=== PATIENT | male | born 1965 | race Caucasian/White ===

== ENCOUNTER → 2020-01-15 | Outpatient (CLI) | payer BC ==
[~2020-01-15] MED LIST: COUM10TA; COUM1TAB17; PERC7.5T8; SKEL800T5
[2020-01-15 17:59] LABS: ALBUMIN 3.6 GM/DL (3.2-5.2); BILIRUBIN,TOTAL 0.3 MG/DL (0.2-1.0); CALCIUM LEVEL 9.4 MG/DL (8.5-10.1); CREATININE FOR GFR 1.62 MG/DL (0.70-1.30); GLOMERULAR FILTRATION RATE 47.3 (>56); POTASSIUM SERUM 4.2 MEQ/L (3.5-5.1); TOTAL PROTEIN 7.2 GM/DL (6.4-8.2)
[2020-01-15 18:51] LABS: BASO % 0.6 % (0.0-1.0); EOS # 0.2 10^3/uL (0.0-0.5); EOS % 2.1 % (0.0-3.0); HEMATOCRIT 37.2 % (42.0-52.0); HEMOGLOBIN 11.9 g/dl (13.5-17.5); LYMPH # 1.7 10^3/uL (1.5-5.0); LYMPH % 23.4 % (24.0-44.0); MEAN CORPUSCULAR HEMOGLOBIN 30.6 pg (27.0-33.0); MEAN CORPUSCULAR VOLUME 95.6 fl (80.0-96.0); MONO # 0.8 10^3/uL (0.0-0.8); MONO % 10.7 % (0.0-5.0); NEUTROPHILS # 4.5 10^3/uL (1.5-8.5); NEUTROPHILS % 62.6 % (36.0-66.0); PLATELET COUNT, AUTOMATED 269 10^3/uL (150-450); RED BLOOD COUNT 3.89 10^6/uL (4.30-6.10); WHITE BLOOD COUNT 7.2 10^3/uL (4.0-10.0)
[2020-01-15 18:52] LABS: HEMOGLOBIN A1c 7.8 %
== END ==
LOC: M WUC 14:47
PROVIDERS: ATTEND Physician Assistant Medical
DX: E78.5 Hyperlipidemia, unspecified (principal); E11.9 Type 2 diabetes mellitus without complications; Z12.5 Encounter for screening for malignant neoplasm of prostate; E66.01 Morbid (severe) obesity due to excess calories
CPT/HCPCS: 36415; 80053; 80061; 83036; 85025; G0103

== ENCOUNTER → 2020-01-15 | Outpatient (CLI) | payer BC ==
[2020-01-15 18:39] LABS: INR 2.17
== END ==
LOC: M WUC 14:50
PROVIDERS: ATTEND Specialist
DX: I82.441 Acute embolism and thrombosis of right tibial vein (principal); Z79.01 Long term (current) use of anticoagulants

== ENCOUNTER → 2020-06-21 | Outpatient (CLI) | payer BC ==
[2020-06-21 16:35] LABS: INR 1.89; PROTHROMBIN TIME 22.1 SECONDS (12.5-14.3)
== END ==
LOC: M WUC 11:30
PROVIDERS: ATTEND Specialist
DX: I82.441 Acute embolism and thrombosis of right tibial vein (principal); Z79.01 Long term (current) use of anticoagulants

== ENCOUNTER → 2020-08-08 | Outpatient (CLI) | payer BC ==
[2020-08-08 14:12] LABS: HEMOGLOBIN A1c 9.1 %
== END ==
LOC: M WUC 09:03
PROVIDERS: ATTEND Physician Assistant Medical
DX: E11.9 Type 2 diabetes mellitus without complications (principal)

== ENCOUNTER → 2020-08-08 | Outpatient (CLI) | payer BC ==
[2020-08-08 13:25] LABS: INR 1.98; PROTHROMBIN TIME 22.9 SECONDS (12.5-14.3)
== END ==
LOC: M WUC 09:07
DX: I82.441 Acute embolism and thrombosis of right tibial vein (principal); Z79.01 Long term (current) use of anticoagulants

== ENCOUNTER → 2020-12-05 | Outpatient (CLI) | payer BC ==
[2020-12-05 16:26] LABS: INR 1.94; PROTHROMBIN TIME 22.6 SECONDS (12.5-14.3)
== END ==
LOC: M WUC 14:30
PROVIDERS: ATTEND Specialist
DX: I82.441 Acute embolism and thrombosis of right tibial vein (principal); Z79.01 Long term (current) use of anticoagulants

== ENCOUNTER → 2020-12-24 | Outpatient (CLI) | payer BC ==
[2020-12-24 17:11] LABS: INR 2.07; PROTHROMBIN TIME 23.8 SECONDS (12.5-14.3)
== END ==
LOC: M WUC 11:29
PROVIDERS: ATTEND Specialist
DX: I82.441 Acute embolism and thrombosis of right tibial vein (principal); Z79.01 Long term (current) use of anticoagulants

== ENCOUNTER → 2020-12-24 | Outpatient (CLI) | payer BC ==
[2020-12-24 16:50] LABS: BASO # 0.1 10^3/uL (0.0-0.2); BASO % 0.9 % (0.0-1.0); EOS # 0.1 10^3/uL (0.0-0.5); EOS % 2.1 % (0.0-3.0); HEMATOCRIT 39.2 % (42.0-52.0); HEMOGLOBIN 12.4 g/dl (13.5-17.5); LYMPH # 1.7 10^3/uL (1.5-5.0); LYMPH % 25.1 % (24.0-44.0); MEAN CORPUSCULAR HEMOGLOBIN 30.1 pg (27.0-33.0); MEAN CORPUSCULAR HGB CONC 31.6 g/dl (32.0-36.5); MEAN CORPUSCULAR VOLUME 95.1 fl (80.0-96.0); MONO # 0.7 10^3/uL (0.0-0.8); MONO % 10.7 % (2.0-8.0); NEUTROPHILS # 4.2 10^3/uL (1.5-8.5); NEUTROPHILS % 60.8 % (36.0-66.0); PLATELET COUNT, AUTOMATED 255 10^3/uL (150-450); RED BLOOD COUNT 4.12 10^6/uL (4.30-6.10); WHITE BLOOD COUNT 6.8 10^3/uL (4.0-10.0)
[2020-12-24 17:34] LABS: HEMOGLOBIN A1c 8.9 %
[2020-12-24 17:37] LABS: ALBUMIN 3.8 GM/DL (3.2-5.2); BILIRUBIN,TOTAL 0.3 MG/DL (0.2-1.0); CHOLESTEROL RISK RATIO 4.276 (<5); CREATININE FOR GFR 1.42 MG/DL (0.70-1.30); GLOMERULAR FILTRATION RATE 54.9 (>56); POTASSIUM SERUM 4.5 MEQ/L (3.5-5.1); TOTAL PROTEIN 7.5 GM/DL (6.4-8.2)
[2020-12-25 11:03] LABS: PERCENT SATURATION 18.4 % (19.7-50.0)
== END ==
LOC: M WUC 11:26
PROVIDERS: ATTEND Physician Assistant Medical
DX: D64.9 Anemia, unspecified (principal); E11.9 Type 2 diabetes mellitus without complications; E66.01 Morbid (severe) obesity due to excess calories; E78.5 Hyperlipidemia, unspecified; Z12.5 Encounter for screening for malignant neoplasm of prostate
CPT/HCPCS: 80053; 80061; 83036; 83550; 85025; G0103

== ENCOUNTER → 2021-03-05 | Outpatient (CLI) | payer BC ==
[2021-03-05 17:15] LABS: INR 2.92; PROTHROMBIN TIME 30.8 SECONDS (12.7-14.5)
== END ==
LOC: M WUC 14:14
PROVIDERS: ATTEND Specialist
DX: I82.441 Acute embolism and thrombosis of right tibial vein (principal); Z79.01 Long term (current) use of anticoagulants

== ENCOUNTER → 2021-05-16 | Outpatient (CLI) | payer BC ==
[2021-05-16 16:20] LABS: INR 2.05; PROTHROMBIN TIME 23.6 SECONDS (12.7-14.5)
== END ==
LOC: M WUC 12:03
PROVIDERS: ATTEND Specialist
DX: I82.441 Acute embolism and thrombosis of right tibial vein (principal); Z79.01 Long term (current) use of anticoagulants

== ENCOUNTER → 2021-05-16 | Outpatient (CLI) | payer BC ==
[2021-05-16 16:10] LABS: BASO # 0.1 10^3/uL (0.0-0.2); BASO % 0.7 % (0.0-1.0); EOS # 0.2 10^3/uL (0.0-0.5); EOS % 2.8 % (0.0-3.0); HEMATOCRIT 35.4 % (42.0-52.0); HEMOGLOBIN 11.2 g/dl (13.5-17.5); LYMPH # 1.8 10^3/uL (1.5-5.0); LYMPH % 25.3 % (24.0-44.0); MEAN CORPUSCULAR HEMOGLOBIN 28.6 pg (27.0-33.0); MEAN CORPUSCULAR HGB CONC 31.6 g/dl (32.0-36.5); MEAN CORPUSCULAR VOLUME 90.5 fl (80.0-96.0); MONO # 0.6 10^3/uL (0.0-0.8); MONO % 8.8 % (2.0-8.0); NEUTROPHILS # 4.4 10^3/uL (1.5-8.5); PLATELET COUNT, AUTOMATED 279 10^3/uL (150-450); RED BLOOD COUNT 3.91 10^6/uL (4.30-6.10)
[2021-05-16 16:40] LABS: ALBUMIN 3.4 GM/DL (3.2-5.2); BILIRUBIN,TOTAL 0.5 MG/DL (0.2-1.0); CALCIUM LEVEL 8.6 MG/DL (8.5-10.1); CHOLESTEROL RISK RATIO 4.155 (<5); CREATININE FOR GFR 1.54 MG/DL (0.70-1.30); POTASSIUM SERUM 4.3 MEQ/L (3.5-5.1)
[2021-05-16 17:18] LABS: HEMOGLOBIN A1c 8.4 %
== END ==
LOC: M WUC 11:53
PROVIDERS: ATTEND Physician Assistant Medical
DX: E11.9 Type 2 diabetes mellitus without complications (principal); E78.5 Hyperlipidemia, unspecified; I10 Essential (primary) hypertension

== ENCOUNTER → 2021-08-06 | Outpatient (CLI) | payer BC ==
[2021-08-06 15:52] LABS: INR 3.28; PROTHROMBIN TIME 33.7 SECONDS (12.7-14.5)
== END ==
LOC: M WUC 11:58
PROVIDERS: ATTEND Specialist
DX: I82.441 Acute embolism and thrombosis of right tibial vein (principal); Z79.01 Long term (current) use of anticoagulants

== ENCOUNTER → 2021-09-03 | Outpatient (REF) | payer BC ==
[2021-09-03 17:59] LABS: INR 2.93; PROTHROMBIN TIME 30.9 SECONDS (12.7-14.5)
== END ==
LOC: M LABWUC 15:45
PROVIDERS: ATTEND Specialist
DX: I82.441 Acute embolism and thrombosis of right tibial vein (principal); Z79.01 Long term (current) use of anticoagulants

== ENCOUNTER → 2021-09-17 | Outpatient (CLI) | payer BC ==
[2021-09-17 13:15] LABS: INR 2.21; PROTHROMBIN TIME 24.9 SECONDS (12.7-14.5)
== END ==
LOC: M WUC 10:30
PROVIDERS: ATTEND Specialist
DX: I82.441 Acute embolism and thrombosis of right tibial vein (principal)

== ENCOUNTER → 2021-09-17 | Outpatient (CLI) | payer BC ==
[2021-09-17 13:06] LABS: BASO # 0.1 10^3/uL (0.0-0.2); BASO % 0.8 % (0.0-1.0); EOS # 0.1 10^3/uL (0.0-0.5); EOS % 1.9 % (0.0-3.0); HEMATOCRIT 35.7 % (42.0-52.0); LYMPH # 1.4 10^3/uL (1.5-5.0); LYMPH % 18.7 % (24.0-44.0); MEAN CORPUSCULAR HEMOGLOBIN 27.2 pg (27.0-33.0); MEAN CORPUSCULAR HGB CONC 30.8 g/dl (32.0-36.5); MEAN CORPUSCULAR VOLUME 88.4 fl (80.0-96.0); MONO # 0.7 10^3/uL (0.0-0.8); MONO % 8.8 % (2.0-8.0); NEUTROPHILS # 5.2 10^3/uL (1.5-8.5); NEUTROPHILS % 69.3 % (36.0-66.0); PLATELET COUNT, AUTOMATED 310 10^3/uL (150-450); RED BLOOD COUNT 4.04 10^6/uL (4.30-6.10); WHITE BLOOD COUNT 7.5 10^3/uL (4.0-10.0)
[2021-09-17 13:33] LABS: ALBUMIN 3.5 GM/DL (3.2-5.2); BILIRUBIN,TOTAL 0.2 MG/DL (0.2-1.0); CALCIUM LEVEL 9.1 MG/DL (8.5-10.1); CHOLESTEROL RISK RATIO 3.448 (<5); CREATININE FOR GFR 1.43 MG/DL (0.70-1.30); GLOMERULAR FILTRATION RATE 54.3 (>56); POTASSIUM SERUM 4.3 MEQ/L (3.5-5.1); TOTAL PROTEIN 7.7 GM/DL (6.4-8.2)
== END ==
LOC: M WUC 10:23
PROVIDERS: ATTEND Physician Assistant Medical
DX: E78.5 Hyperlipidemia, unspecified (principal); E11.9 Type 2 diabetes mellitus without complications; I10 Essential (primary) hypertension

== ENCOUNTER → 2021-11-03 | Outpatient (CLI) | payer BC ==
[2021-11-03 15:15] LABS: INR 3.23; PROTHROMBIN TIME 33.3 SECONDS (12.7-14.5)
== END ==
LOC: M WUC 11:37
PROVIDERS: ATTEND Specialist
DX: I82.441 Acute embolism and thrombosis of right tibial vein (principal)

== ENCOUNTER → 2021-12-29 | Outpatient (CLI) | payer BC ==
[2021-12-29 12:53] LABS: INR 2.87; PROTHROMBIN TIME 30.4 SECONDS (12.7-14.5)
== END ==
LOC: M WUC 09:03
PROVIDERS: ATTEND Specialist
DX: I82.441 Acute embolism and thrombosis of right tibial vein (principal); Z79.01 Long term (current) use of anticoagulants

== ENCOUNTER → 2021-12-29 | Outpatient (CLI) | payer BC ==
[2021-12-29 13:51] LABS: ALBUMIN 3.4 GM/DL (3.2-5.2); BILIRUBIN,TOTAL 0.3 MG/DL (0.2-1.0); CALCIUM LEVEL 9.4 MG/DL (8.5-10.1); CHOLESTEROL RISK RATIO 3.931 (<5); CREATININE FOR GFR 1.69 MG/DL (0.70-1.30); GLOMERULAR FILTRATION RATE 44.7 (>56); POTASSIUM SERUM 4.8 MEQ/L (3.5-5.1); TOTAL PROTEIN 6.7 GM/DL (6.4-8.2)
[2021-12-29 14:59] LABS: HEMOGLOBIN A1c 7.4 %
== END ==
LOC: M WUC 09:02
PROVIDERS: ATTEND Physician Assistant Medical
DX: E78.5 Hyperlipidemia, unspecified (principal); E11.9 Type 2 diabetes mellitus without complications; I10 Essential (primary) hypertension

== ENCOUNTER → 2022-03-24 | Outpatient (REF) | payer BC ==
[2022-03-24 22:01] LABS: INR 2.92; PROTHROMBIN TIME 30.8 SECONDS (12.7-14.5)
== END ==
LOC: M LAB REF 20:47
PROVIDERS: ATTEND Specialist
DX: I82.441 Acute embolism and thrombosis of right tibial vein (principal); Z79.01 Long term (current) use of anticoagulants

== ENCOUNTER → 2022-05-08 | Outpatient (CLI) | payer BC ==
[2022-05-08 17:33] LABS: INR 3.51; PROTHROMBIN TIME 35.7 SECONDS (12.5-14.5)
== END ==
LOC: M WUC 13:15
PROVIDERS: ATTEND Specialist
DX: I82.441 Acute embolism and thrombosis of right tibial vein (principal); Z79.01 Long term (current) use of anticoagulants

== ENCOUNTER → 2022-05-08 | Outpatient (CLI) | payer BC ==
[2022-05-08 17:18] LABS: BASO # 0.1 10^3/uL (0.0-0.2); BASO % 0.6 % (0.0-1.0); EOS # 0.2 10^3/uL (0.0-0.5); EOS % 1.9 % (0.0-3.0); HEMATOCRIT 38.6 % (42.0-52.0); HEMOGLOBIN 11.7 g/dl (13.5-17.5); LYMPH # 1.8 10^3/uL (1.5-5.0); LYMPH % 21.9 % (24.0-44.0); MEAN CORPUSCULAR HEMOGLOBIN 27.3 pg (27.0-33.0); MEAN CORPUSCULAR HGB CONC 30.3 g/dl (32.0-36.5); MONO # 0.8 10^3/uL (0.0-0.8); MONO % 9.4 % (2.0-8.0); NEUTROPHILS # 5.4 10^3/uL (1.5-8.5); PLATELET COUNT, AUTOMATED 312 10^3/uL (150-450); RED BLOOD COUNT 4.29 10^6/uL (4.30-6.10); WHITE BLOOD COUNT 8.1 10^3/uL (4.0-10.0)
[2022-05-08 17:28] LABS: HEMOGLOBIN A1c 9.4 %
[2022-05-08 17:39] LABS: ALBUMIN 3.5 GM/DL (3.2-5.2); BILIRUBIN,TOTAL 0.2 MG/DL (0.2-1.0); CHOLESTEROL RISK RATIO 3.787 (<5); CREATININE FOR GFR 1.44 MG/DL (0.70-1.30); GLOMERULAR FILTRATION RATE 53.8 (>56); POTASSIUM SERUM 4.6 MEQ/L (3.5-5.1)
== END ==
LOC: M WUC 13:12
PROVIDERS: ATTEND Physician Assistant Medical
DX: E78.5 Hyperlipidemia, unspecified (principal); E11.9 Type 2 diabetes mellitus without complications; I10 Essential (primary) hypertension

== ENCOUNTER → 2022-07-02 | Outpatient (CLI) | payer BC ==
[2022-07-02 16:51] LABS: INR 2.84; PROTHROMBIN TIME 30.3 SECONDS (12.5-14.5)
== END ==
LOC: M WUC 13:19
PROVIDERS: ATTEND Specialist
DX: I82.441 Acute embolism and thrombosis of right tibial vein (principal); Z79.01 Long term (current) use of anticoagulants

== ENCOUNTER 2022-07-21 12:00 | Emergency (ER) | payer BC ==
[~2022-07-21] VITALS: Ht 182.9 cm; Wt 140.9 kg
[2022-07-21] MEDS ORDERED: METF-839 PO (12:25)
[2022-07-21] MEDS ORDERED: TRUL0.5I SC (12:25)
[2022-07-21] MEDS ORDERED: FENO145T7 PO (12:25)
[2022-07-21] MEDS ORDERED: FARX1TAB3 PO (12:25)
[2022-07-21] MEDS ORDERED: LISI10TA22 PO (12:25)
[2022-07-21] MEDS ORDERED: vit (12:25)
[2022-07-21] MEDS ORDERED: WARF-21 PO (12:25)
[2022-07-21] MEDS ORDERED: TAMS1CAP17 PO (12:25)
[2022-07-21 16:19] LABS: BASO # 0.1 10^3/uL (0.0-0.2); BASO % 0.6 % (0.0-1.0); EOS # 0.1 10^3/uL (0.0-0.5); EOS % 1.4 % (0.0-3.0); HEMATOCRIT 30.8 % (42.0-52.0); HEMOGLOBIN 9.4 g/dl (13.5-17.5); LYMPH % 21.9 % (24.0-44.0); MEAN CORPUSCULAR HEMOGLOBIN 27.3 pg (27.0-33.0); MEAN CORPUSCULAR HGB CONC 30.5 g/dl (32.0-36.5); MEAN CORPUSCULAR VOLUME 89.5 fl (80.0-96.0); MONO # 0.8 10^3/uL (0.0-0.8); MONO % 8.5 % (2.0-8.0); NEUTROPHILS # 6.2 10^3/uL (1.5-8.5); NEUTROPHILS % 66.8 % (36.0-66.0); PLATELET COUNT, AUTOMATED 322 10^3/uL (150-450); RED BLOOD COUNT 3.44 10^6/uL (4.30-6.10); WHITE BLOOD COUNT 9.3 10^3/uL (4.0-10.0)
[2022-07-21 16:31] LABS: INR 2.72; PROTHROMBIN TIME 29.3 SECONDS (12.5-14.5)
[2022-07-21 16:32] LABS: PARTIAL THROMBOPLASTIN TIME 33.2 SECONDS (24.8-34.2)
[2022-07-21 16:50] LABS: D-DIMER QUANT < 270 ng/ml (<500)
[2022-07-21 17:30] LABS: CK-MB VALUE MASS < 1.0 NG/ML (<3.6)
[2022-07-21 17:44] LABS: ALBUMIN 3.8 G/DL (3.2-5.2); ALKALINE PHOSPHATASE 48 U/L (46-116); ALT/SGPT 17 U/L (7.0-40); AST/SGOT 13 U/L (<34); BILIRUBIN,DIRECT < 0.1 MG/DL (<0.4); BILIRUBIN,TOTAL 0.3 MG/DL (0.3-1.2); BLOOD UREA NITROGEN 40 MG/DL (9-23); CALCIUM LEVEL 9.2 MG/DL (8.5-10.1); CARBON DIOXIDE LEVEL 24 MMOL/L (20-31); CHLORIDE LEVEL 106 MMOL/L (98-107); CPK CREATINE PHOSPHOKINASE 43 U/L (46-171); CREATININE FOR GFR 1.54 MG/DL (0.70-1.30); GLOMERULAR FILTRATION RATE 49.6 (>56); GLUCOSE, FASTING 124 MG/DL (60-100); MB/CK RELATIVE INDEX 2.32 (< OR =4); POTASSIUM SERUM 4.8 MMOL/L (3.5-5.1); SODIUM LEVEL 140 MMOL/L (136-145); TOTAL PROTEIN 7.1 G/DL (5.7-8.2)
[2022-07-21] MEDS ORDERED: NS 500 ML IV ONE (17:50)
[2022-07-21] MEDS ORDERED: NS 1,000 ML IV ONE (18:05)
[2022-07-21 19:02] LABS: IRON (FE) 47 UG/DL (65-175); PERCENT SATURATION 10.2 % (19.7-50.0); TOTAL IRON BINDING CAPACITY 461 UG/DL (250-425)
[2022-07-21] MEDS ORDERED: FERR325T3 PO (20:38)
[2022-07-21] MEDS ORDERED: DOCU100C17 PO ×2 (20:39)
[2022-07-21 21:12] VITALS: BP 124/73
== END 2022-07-21 21:14 | disposition home or self-care (01) ==
LOC: M ED 12:00
DX: R06.02 Shortness of breath (principal); N17.9 Acute kidney failure, unspecified; K62.5 Hemorrhage of anus and rectum; E86.0 Dehydration; I10 Essential (primary) hypertension; Z79.01 Long term (current) use of anticoagulants; Z79.84 Long term (current) use of oral hypoglycemic drugs; Z79.899 Other long term (current) drug therapy

== ENCOUNTER → 2022-07-27 | Outpatient (CLI) | payer BC ==
[~2022-07-27] MED LIST changes: +DOCU100C17 PO; +FARX1TAB3 PO; +FENO145T7 PO; +FERR325T3 PO; +LISI10TA22 PO; +METF-839 PO; +TAMS1CAP17 PO; +TRUL0.5I SC; +WARF-21 PO; +vit
[2022-07-27 10:20] LABS: BASO # 0.1 10^3/uL (0.0-0.2); BASO % 0.8 % (0.0-1.0); EOS # 0.2 10^3/uL (0.0-0.5); EOS % 2.7 % (0.0-3.0); HEMATOCRIT 31.6 % (42.0-52.0); HEMOGLOBIN 9.4 g/dl (13.5-17.5); LYMPH # 1.6 10^3/uL (1.5-5.0); LYMPH % 23.9 % (24.0-44.0); MEAN CORPUSCULAR HEMOGLOBIN 28.1 pg (27.0-33.0); MEAN CORPUSCULAR HGB CONC 29.7 g/dl (32.0-36.5); MEAN CORPUSCULAR VOLUME 94.3 fl (80.0-96.0); MONO # 0.6 10^3/uL (0.0-0.8); MONO % 9.1 % (2.0-8.0); NEUTROPHILS # 4.1 10^3/uL (1.5-8.5); NEUTROPHILS % 62.6 % (36.0-66.0); PLATELET COUNT, AUTOMATED 327 10^3/uL (150-450); RED BLOOD COUNT 3.35 10^6/uL (4.30-6.10); WHITE BLOOD COUNT 6.6 10^3/uL (4.0-10.0)
== END ==
LOC: M WUC 08:50
PROVIDERS: ATTEND Physician Assistant
DX: D64.9 Anemia, unspecified (principal)

== ENCOUNTER → 2022-07-27 | Outpatient (CLI) | payer BC ==
[2022-07-27 12:26] LABS: INR 2.63; PROTHROMBIN TIME 28.5 SECONDS (12.5-14.5)
== END ==
LOC: M WUC 08:38
PROVIDERS: ATTEND Specialist
DX: I82.441 Acute embolism and thrombosis of right tibial vein (principal); Z79.01 Long term (current) use of anticoagulants

== ENCOUNTER → 2022-08-25 | Outpatient (CLI) | payer BC | LOC: M LABSMTC 08:46 | PROVIDERS: ATTEND Anesthesiology | DX: Z01.812 Encounter for preprocedural laboratory examination (principal); Z11.52 Encounter for screening for COVID-19 ==

== ENCOUNTER 2022-08-28 08:09 | Day surgery (SDC) | payer BC ==
[~2022-08-28] VITALS: Ht 182.9 cm; Wt 137.0 kg
[~2022-08-28 08:09] MED LIST changes: +NS 1,000 ML IV ONE
[2022-08-28] MEDS ORDERED: propofoL 200 MG/20 ML VIAL As Ordered ONE (09:14)
[2022-08-28] MEDS ORDERED: LIDOCAINE 2% 100MG/5ML SDV (FOR ANES.) As Ordered ONE (09:14)
[2022-08-28 10:30] VITALS: BP 130/87
== END 2022-08-28 10:45 | disposition home or self-care (01) ==
LOC: M OPP 08:09
PROVIDERS: ATTEND Surgery
DX: K64.0 First degree hemorrhoids (principal); D50.9 Iron deficiency anemia, unspecified; K22.89 Other specified disease of esophagus; K29.70 Gastritis, unspecified, without bleeding; E11.9 Type 2 diabetes mellitus without complications; F32.9 Major depressive disorder, single episode, unspecified; N40.0 Benign prostatic hyperplasia without lower urinary tract symptoms; Z79.01 Long term (current) use of anticoagulants; Z79.84 Long term (current) use of oral hypoglycemic drugs; Z79.899 Other long term (current) drug therapy; Z86.718 Personal history of other venous thrombosis and embolism

== ENCOUNTER → 2022-09-14 | Outpatient (CLI) | payer BC ==
[~2022-09-14] MED LIST changes: -NS 1,000 ML IV ONE
[2022-09-14 14:09] LABS: HEMOGLOBIN A1c 9.4 % (4.0-6.0)
[2022-09-14 14:12] LABS: CREATININE, URINE 68.1 MG/DL
[2022-09-14 14:14] LABS: MALB URINE SIEMENS < 3.0 MG/L; MAU/CREAT RATIO 4.4 MCG/MG (0.0-30.0)
[2022-09-14 14:26] LABS: BASO % 0.6 % (0.0-1.0); EOS # 0.1 10^3/uL (0.0-0.5); EOS % 1.7 % (0.0-3.0); HEMATOCRIT 36.3 % (42.0-52.0); HEMOGLOBIN 11.3 g/dl (13.5-17.5); LYMPH # 1.2 10^3/uL (1.5-5.0); LYMPH % 18.4 % (24.0-44.0); MEAN CORPUSCULAR HEMOGLOBIN 28.6 pg (27.0-33.0); MEAN CORPUSCULAR HGB CONC 31.1 g/dl (32.0-36.5); MEAN CORPUSCULAR VOLUME 91.9 fl (80.0-96.0); MONO # 0.7 10^3/uL (0.0-0.8); MONO % 11.4 % (2.0-8.0); NEUTROPHILS # 4.2 10^3/uL (1.5-8.5); NEUTROPHILS % 67.6 % (36.0-66.0); PLATELET COUNT, AUTOMATED 305 10^3/uL (150-450); RED BLOOD COUNT 3.95 10^6/uL (4.30-6.10); WHITE BLOOD COUNT 6.3 10^3/uL (4.0-10.0)
== END ==
LOC: M WUC 10:13
PROVIDERS: ATTEND Physician Assistant Medical
DX: D50.9 Iron deficiency anemia, unspecified (principal); E11.9 Type 2 diabetes mellitus without complications; E78.5 Hyperlipidemia, unspecified

== ENCOUNTER → 2022-11-19 | Outpatient (REF) | payer BC ==
[2022-11-19 17:20] LABS: BASO % 0.7 % (0.0-1.0); EOS # 0.2 10^3/uL (0.0-0.5); EOS % 3.7 % (0.0-3.0); HEMATOCRIT 35.7 % (42.0-52.0); LYMPH # 1.6 10^3/uL (1.5-5.0); LYMPH % 28.3 % (24.0-44.0); MEAN CORPUSCULAR HEMOGLOBIN 27.5 pg (27.0-33.0); MEAN CORPUSCULAR HGB CONC 30.8 g/dl (32.0-36.5); MEAN CORPUSCULAR VOLUME 89.3 fl (80.0-96.0); MONO # 0.8 10^3/uL (0.0-0.8); MONO % 13.9 % (2.0-8.0); NEUTROPHILS % 52.7 % (36.0-66.0); PLATELET COUNT, AUTOMATED 377 10^3/uL (150-450); WHITE BLOOD COUNT 5.7 10^3/uL (4.0-10.0)
[2022-11-19 17:49] LABS: THYROID STIMULATING HORMONE 2.536 uIU/ML (0.55-4.78)
[2022-11-19 17:50] LABS: ALBUMIN 3.2 G/DL (3.2-5.2); BILIRUBIN,TOTAL 0.3 MG/DL (0.3-1.2); CALCIUM LEVEL 9.2 MG/DL (8.5-10.1); CHOLESTEROL RISK RATIO 3.82 (<5); CREATININE FOR GFR 1.46 MG/DL (0.70-1.30); GLOMERULAR FILTRATION RATE 52.8 (>56); LDL CHOLESTEROL 61.8 MG/DL (<100); POTASSIUM SERUM 4.9 MMOL/L (3.5-5.1); TOTAL PROTEIN 6.9 G/DL (5.7-8.2)
[2022-11-19 18:14] LABS: HEMOGLOBIN A1c 10.1 % (4.0-6.0)
== END ==
LOC: M LAB REF 16:31
PROVIDERS: ATTEND Physician Assistant Medical
DX: D50.9 Iron deficiency anemia, unspecified (principal); E11.69 Type 2 diabetes mellitus with other specified complication; R53.83 Other fatigue; E78.2 Mixed hyperlipidemia

== ENCOUNTER → 2022-12-23 | Outpatient (CLI) | payer BC | LOC: M RAD 07:18 | PROVIDERS: ATTEND Physician Assistant Medical | DX: E11.65 Type 2 diabetes mellitus with hyperglycemia (principal) ==

== ENCOUNTER → 2023-03-23 | Outpatient (REF) | payer BC ==
[2023-03-25 11:23] LABS: CREATININE, URINE 105.6 MG/DL; MAU/CREAT RATIO 3.7 MCG/MG (0.0-30.0)
== END ==
LOC: M LAB REF 09:49
PROVIDERS: ATTEND Internal Medicine Endocrinology, Diabetes & Metabolism
DX: E11.65 Type 2 diabetes mellitus with hyperglycemia (principal)

== ENCOUNTER → 2023-06-22 | Outpatient (REF) | payer BC ==
[2023-06-22 18:04] LABS: CREATININE, URINE 82.4 MG/DL
[2023-06-22 18:05] LABS: MALB URINE SIEMENS < 3.0 MG/L; MAU/CREAT RATIO 3.6 MCG/MG (0.0-30.0)
== END ==
LOC: M LAB REF 17:03
PROVIDERS: ATTEND Internal Medicine Endocrinology, Diabetes & Metabolism
DX: E11.65 Type 2 diabetes mellitus with hyperglycemia (principal)

== ENCOUNTER → 2023-09-06 | Outpatient (CLI) | payer BC ==
[2023-09-06 14:45] LABS: BASO # 0.1 10^3/uL (0.0-0.2); BASO % 0.7 % (0.0-1.0); EOS # 0.2 10^3/uL (0.0-0.5); EOS % 2.1 % (0.0-3.0); HEMATOCRIT 37.9 % (42.0-52.0); HEMOGLOBIN 11.8 g/dl (13.5-17.5); LYMPH # 1.4 10^3/uL (1.5-5.0); LYMPH % 17.2 % (24.0-44.0); MEAN CORPUSCULAR HEMOGLOBIN 28.6 pg (27.0-33.0); MEAN CORPUSCULAR HGB CONC 31.1 g/dl (32.0-36.5); MEAN CORPUSCULAR VOLUME 91.8 fl (80.0-96.0); MONO # 0.8 10^3/uL (0.0-0.8); MONO % 9.5 % (2.0-8.0); NEUTROPHILS # 5.9 10^3/uL (1.5-8.5); NEUTROPHILS % 70.1 % (36.0-66.0); PLATELET COUNT, AUTOMATED 359 10^3/uL (150-450); RED BLOOD COUNT 4.13 10^6/uL (4.30-6.10); WHITE BLOOD COUNT 8.4 10^3/uL (4.0-10.0)
[2023-09-06 14:47] LABS: ALBUMIN 3.4 G/DL (3.2-5.2); BILIRUBIN,TOTAL 0.2 MG/DL (0.3-1.2); CALCIUM LEVEL 8.6 MG/DL (8.5-10.1); CHOLESTEROL RISK RATIO 2.94 (<5); CREATININE FOR GFR 1.42 MG/DL (0.70-1.30); GLOMERULAR FILTRATION RATE 54.3 (>56); HDL CHOLESTEROL 48.6 MG/DL (>40); LDL CHOLESTEROL 78.6 MG/DL (<100); NON-HDL-C 94.4 MG/DL; POTASSIUM SERUM 4.5 MMOL/L (3.5-5.1); PSA SCREENING 0.5 NG/ML (< 4.00); TOTAL PROTEIN 6.9 G/DL (5.7-8.2)
[2023-09-06 14:52] LABS: TOTAL 25(OH) VITAMIN D 66.6 NG/ML (20.0-100.0)
[2023-09-06 15:18] LABS: HEMOGLOBIN A1c 6.9 % (4.0-6.0)
== END ==
LOC: M WUC 10:07
PROVIDERS: ATTEND Physician Assistant Medical
DX: E11.69 Type 2 diabetes mellitus with other specified complication (principal); E78.2 Mixed hyperlipidemia; I10 Essential (primary) hypertension; E55.9 Vitamin D deficiency, unspecified; Z12.5 Encounter for screening for malignant neoplasm of prostate
CPT/HCPCS: 36415; 80053; 80061; 82306; 83036; 85025; G0103

== ENCOUNTER → 2023-09-13 | Outpatient (CLI) | payer BC | LOC: M LAB 08:57 | PROVIDERS: ATTEND Physician Assistant Surgical | DX: E78.9 Disorder of lipoprotein metabolism, unspecified (principal); E11.69 Type 2 diabetes mellitus with other specified complication; E55.9 Vitamin D deficiency, unspecified ==

== ENCOUNTER → 2023-11-26 | Outpatient (CLI) | payer BC ==
[~2023-11-26] MED LIST changes: +GLIP5TAB17 PO; +LOSA50TA28 PO; +METF-723 PO; +TIRZ7.5P SC; +XARE20TA PO
[2023-11-26 17:01] LABS: HEMATOCRIT 26.9 % (42.0-52.0); HEMOGLOBIN 8.1 g/dl (13.5-17.5); MEAN CORPUSCULAR HEMOGLOBIN 25.5 pg (27.0-33.0); MEAN CORPUSCULAR HGB CONC 30.1 g/dl (32.0-36.5); MEAN CORPUSCULAR VOLUME 84.6 fl (80.0-96.0); PLATELET COUNT, AUTOMATED 449 10^3/uL (150-450); RED BLOOD COUNT 3.18 10^6/uL (4.30-6.10); WHITE BLOOD COUNT 10.1 10^3/uL (4.0-10.0)
[2023-11-26 17:30] LABS: CREATININE, URINE 121.8 MG/DL
[2023-11-26 17:31] LABS: MAU/CREAT RATIO 4.9 MCG/MG (0.0-30.0)
[2023-11-26 17:33] LABS: ALBUMIN 2.7 G/DL (3.2-5.2); BILIRUBIN,TOTAL 0.3 MG/DL (0.3-1.2); CALCIUM LEVEL 9.2 MG/DL (8.5-10.1); CHOLESTEROL RISK RATIO 3.08 (<5); CREATININE FOR GFR 1.57 MG/DL (0.70-1.30); GLOMERULAR FILTRATION RATE 48.4 (>56); HDL CHOLESTEROL 42.4 MG/DL (>40); LDL CHOLESTEROL 70.8 MG/DL (<100); NON-HDL-C 88.6 MG/DL; POTASSIUM SERUM 4.7 MMOL/L (3.5-5.1)
== END ==
LOC: M WUC 11:05
PROVIDERS: ATTEND Internal Medicine Endocrinology, Diabetes & Metabolism
DX: E11.65 Type 2 diabetes mellitus with hyperglycemia (principal)

== ENCOUNTER 2023-11-28 10:21 | Inpatient (IN) | payer BC ==
[2023-11-28] VITALS (9 sets, daily range): BP systolic 96–122; BP diastolic 51–68; TEMP 97.2–98.6; O2SAT 98–100
[~2023-11-28] VITALS: Ht 182.9 cm; Wt 124.8 kg
[~2023-11-28 10:21] MED LIST changes: -GLIP5TAB17 PO; -LOSA50TA28 PO; -METF-723 PO; -TIRZ7.5P SC; -XARE20TA PO
[2023-11-28] MEDS ORDERED: XARE20TA PO (10:48)
[2023-11-28] MEDS ORDERED: TIRZ7.5P SC (10:48)
[2023-11-28] MEDS ORDERED: LOSA50TA28 PO (10:48)
[2023-11-28] MEDS ORDERED: GLIP5TAB17 PO (10:48)
[2023-11-28 11:44] LABS: BASO # 0.1 10^3/uL (0.0-0.2); BASO % 0.6 % (0.0-1.0); EOS # 0.3 10^3/uL (0.0-0.5); EOS % 3.6 % (0.0-3.0); HEMATOCRIT 24.6 % (42.0-52.0); HEMOGLOBIN 7.7 g/dl (13.5-17.5); LYMPH % 10.8 % (24.0-44.0); MEAN CORPUSCULAR HEMOGLOBIN 25.6 pg (27.0-33.0); MEAN CORPUSCULAR HGB CONC 31.3 g/dl (32.0-36.5); MEAN CORPUSCULAR VOLUME 81.7 fl (80.0-96.0); MONO # 0.7 10^3/uL (0.0-0.8); MONO % 7.2 % (2.0-8.0); NEUTROPHILS # 7.3 10^3/uL (1.5-8.5); NEUTROPHILS % 77.4 % (36.0-66.0); PLATELET COUNT, AUTOMATED 426 10^3/uL (150-450); RED BLOOD COUNT 3.01 10^6/uL (4.30-6.10); WHITE BLOOD COUNT 9.4 10^3/uL (4.0-10.0)
[2023-11-28 12:01] LABS: D-DIMER QUANT 3.37 ug/mL (<0.5); INR 1.99; PROTHROMBIN TIME 21.9 SECONDS (12.5-14.5)
[2023-11-28 12:06] LABS: ALBUMIN 2.8 G/DL (3.2-5.2); BILIRUBIN,DIRECT 0.1 MG/DL (<0.4); BILIRUBIN,TOTAL 0.4 MG/DL (0.3-1.2); CALCIUM LEVEL 9.1 MG/DL (8.5-10.1); CREATININE FOR GFR 1.77 MG/DL (0.70-1.30); GLOMERULAR FILTRATION RATE 42.1 (>56); POTASSIUM SERUM 4.4 MMOL/L (3.5-5.1); TOTAL PROTEIN 7.2 G/DL (5.7-8.2)
[2023-11-28 12:10] LABS: THYROID STIMULATING HORMONE 1.793 uIU/ML (0.55-4.78)
[2023-11-28] MEDS ORDERED: ISOVUE-370 76% 100ML VIAL As Ordered ONE (12:22)
[2023-11-28] MEDS: NS 1,000 ML IV ONE (13:05)
[2023-11-28] MEDS ORDERED: FERR325T3 PO (14:46)
[2023-11-28] MEDS ORDERED: HOME MED LIST COMPLETE! XX SCH (14:50)
[2023-11-28] MEDS: PANTOPRAZOLE 40MG VIAL IV ONE (15:11)
[2023-11-28 15:20] LABS: FERRITIN 148.8 NG/ML (10.5-307.3)
[2023-11-28 15:29] LABS: FOLATE 23.72 NG/ML (>5.4); PERCENT SATURATION 7.1 % (19.7-50.0)
[2023-11-28] MEDS: SUCRALFATE SUSP 1GM/10ML UD PO SCH (16:53)
[2023-11-28] MEDS ORDERED: GLUCOSE 4 GM CHEW PO PRN (17:30)
[2023-11-28] MEDS ORDERED: GLUCAGON INJ 1MG VIAL SC PRN (17:30)
[2023-11-28] MEDS ORDERED: DEXTROSE 50% 50ML SYRINGE IV PRN (17:30)
[2023-11-28] MEDS: INSULIN LISPRO (NovoLOG) PER UNIT SC SCH ×2 (17:50→21:00)
[2023-11-28] MEDS: PANTOPRAZOLE 40MG VIAL IV SCH (21:04)
[2023-11-28] MEDS: TAMSULOSIN 0.4 MG CAP PO SCH (21:04)
[2023-11-28 22:04] LABS: HEMATOCRIT 23.2 % (42.0-52.0); HEMOGLOBIN 7.5 g/dl (13.5-17.5)
[2023-11-29] VITALS (7 sets, daily range): BP systolic 97–114; BP diastolic 53–64; TEMP 96.7–97.8; O2SAT 98–100
[2023-11-29 03:17] LABS: BASO # 0.1 10^3/uL (0.0-0.2); BASO % 0.7 % (0.0-1.0); EOS # 0.3 10^3/uL (0.0-0.5); EOS % 4.4 % (0.0-3.0); HEMATOCRIT 23.9 % (42.0-52.0); HEMOGLOBIN 7.6 g/dl (13.5-17.5); LYMPH # 1.6 10^3/uL (1.5-5.0); LYMPH % 20.5 % (24.0-44.0); MEAN CORPUSCULAR HEMOGLOBIN 26.4 pg (27.0-33.0); MEAN CORPUSCULAR HGB CONC 31.8 g/dl (32.0-36.5); MONO # 0.7 10^3/uL (0.0-0.8); MONO % 9.5 % (2.0-8.0); NEUTROPHILS % 64.5 % (36.0-66.0); RED BLOOD COUNT 2.88 10^6/uL (4.30-6.10); WHITE BLOOD COUNT 7.7 10^3/uL (4.0-10.0)
[2023-11-29 03:21] LABS: PLATELET COUNT, AUTOMATED 295 10^3/uL (150-450)
[2023-11-29 03:48] LABS: BLOOD UREA NITROGEN 25 MG/DL (9-23); CALCIUM LEVEL 7.9 MG/DL (8.5-10.1); CARBON DIOXIDE LEVEL 23 MMOL/L (20-31); CHLORIDE LEVEL 111 MMOL/L (98-107); CREATININE FOR GFR 1.56 MG/DL (0.70-1.30); GLOMERULAR FILTRATION RATE 48.7 (>56); GLUCOSE, FASTING 88 MG/DL (60-100); POTASSIUM SERUM 4.5 MMOL/L (3.5-5.1); SODIUM LEVEL 140 MMOL/L (136-145)
[2023-11-29 09:45] LABS: HEMATOCRIT 29.6 % (42.0-52.0); HEMOGLOBIN 9.4 g/dl (13.5-17.5)
[2023-11-29 10:08] LABS: CARCINOEMBRYONIC ANTIGEN < 2.0 NG/ML (<2.5)
[2023-11-29 10:22] LABS: CA19-9 TUMOR MARKER,CARBOHYDRA 13.2 U/ML (<35.0)
[2023-11-29 13:10] LABS: HEMATOCRIT 28.6 % (42.0-52.0); HEMOGLOBIN 9.1 g/dl (13.5-17.5)
[2023-11-29 20:32] LABS: HEMOGLOBIN 7.9 g/dl (13.5-17.5)
[2023-11-30 02:57] LABS: BASO % 0.5 % (0.0-1.0); EOS # 0.4 10^3/uL (0.0-0.5); EOS % 4.5 % (0.0-3.0); HEMATOCRIT 24.9 % (42.0-52.0); HEMOGLOBIN 7.9 g/dl (13.5-17.5); LYMPH # 1.3 10^3/uL (1.5-5.0); LYMPH % 16.3 % (24.0-44.0); MEAN CORPUSCULAR HEMOGLOBIN 26.5 pg (27.0-33.0); MEAN CORPUSCULAR HGB CONC 31.7 g/dl (32.0-36.5); MEAN CORPUSCULAR VOLUME 83.6 fl (80.0-96.0); MONO # 0.8 10^3/uL (0.0-0.8); MONO % 9.6 % (2.0-8.0); NEUTROPHILS # 5.4 10^3/uL (1.5-8.5); NEUTROPHILS % 68.8 % (36.0-66.0); PLATELET COUNT, AUTOMATED 319 10^3/uL (150-450); RED BLOOD COUNT 2.98 10^6/uL (4.30-6.10); WHITE BLOOD COUNT 7.8 10^3/uL (4.0-10.0)
[2023-11-30 03:27] LABS: CREATININE FOR GFR 1.38 MG/DL (0.70-1.30); GLOMERULAR FILTRATION RATE 56.1 (>56); POTASSIUM SERUM 4.1 MMOL/L (3.5-5.1)
[2023-11-30 03:30] VITALS: BP 95/55; TEMP 98.3; O2SAT 96
[2023-11-30 07:35] VITALS: BP 105/57; TEMP 97.6; O2SAT 99
[2023-11-30] MEDS: DOCUSATE SODIUM 100MG CAPSULE PO SCH (09:00)
[2023-11-30] MEDS ORDERED: METF-723 PO (09:09)
[2023-11-30] MEDS ORDERED: HOME MED LIST COMPLETE! XX SCH (09:10)
[2023-11-30 09:46] LABS: HEMATOCRIT 26.8 % (42.0-52.0); HEMOGLOBIN 8.5 g/dl (13.5-17.5)
[2023-11-30] MEDS: APIXABAN 5 MG TAB (ELIQUIS) PO ONE (11:22)
[2023-11-30 11:45] VITALS: BP 92/50; TEMP 97.5; O2SAT 99
[2023-11-30 14:46] LABS: HEMATOCRIT 25.3 % (42.0-52.0); HEMOGLOBIN 8.1 g/dl (13.5-17.5)
[2023-11-30 18:33] VITALS: BP 149/91; TEMP 97.9; O2SAT 100
[2023-11-30 19:38] VITALS: BP 143/75; TEMP 98.8; O2SAT 99
[2023-11-30] MEDS: PANTOPRAZOLE 40MG TAB (PROTONIX) PO SCH (20:22)
[2023-11-30 21:40] LABS: HEMOGLOBIN 7.5 g/dl (13.5-17.5)
[2023-12-01 01:36] VITALS: BP 102/62; TEMP 98.2; O2SAT 99
[2023-12-01 05:45] VITALS: BP 102/66; TEMP 97.9; O2SAT 98
[2023-12-01 06:04] LABS: HEMATOCRIT 25.8 % (42.0-52.0); MEAN CORPUSCULAR VOLUME 83.8 fl (80.0-96.0); PLATELET COUNT, AUTOMATED 316 10^3/uL (150-450); RED BLOOD COUNT 3.08 10^6/uL (4.30-6.10); WHITE BLOOD COUNT 7.5 10^3/uL (4.0-10.0)
[2023-12-01] MEDS: D5W/0.45% SODIUM CHLORIDE 1,000 ML IV SCH (06:34)
[2023-12-01 10:14] LABS: HEMATOCRIT 26.7 % (42.0-52.0); HEMOGLOBIN 8.3 g/dl (13.5-17.5)
[2023-12-01 10:30] VITALS: BP 122/80; TEMP 97.7; O2SAT 100
[2023-12-01 10:48] LABS: ALBUMIN 2.4 G/DL (3.2-5.2); BILIRUBIN,TOTAL 0.3 MG/DL (0.3-1.2); CALCIUM LEVEL 8.5 MG/DL (8.5-10.1); CREATININE FOR GFR 1.31 MG/DL (0.70-1.30); GLOMERULAR FILTRATION RATE 59.6 (>56); POTASSIUM SERUM 4.3 MMOL/L (3.5-5.1); TOTAL PROTEIN 6.5 G/DL (5.7-8.2)
[2023-12-01 14:00] VITALS: BP 125/71; TEMP 97.9; O2SAT 99
== END 2023-12-01 16:35 | disposition home or self-care (01) | DRG 661 ==
LOC: M ED 13:33 → M ED INP 14:39 → M PCU 15:36 → M MSPAV 11-30 18:36
PROVIDERS: ADMIT Internal Medicine; ATTEND General Practice
PROC: 30233N1 Transfusion of Nonautologous Red Blood Cells into Peripheral Vein, Percutaneous Approach (ICD-10-PCS; principal; 2023-11-28)
PROC: B246ZZZ Ultrasonography of Right and Left Heart (ICD-10-PCS; 2023-12-01)
DX: D68.32 Hemorrhagic disorder due to extrinsic circulating anticoagulants (principal); E11.22 Type 2 diabetes mellitus with diabetic chronic kidney disease; N17.9 Acute kidney failure, unspecified; K86.3 Pseudocyst of pancreas; D62 Acute posthemorrhagic anemia; K92.2 Gastrointestinal hemorrhage, unspecified; N18.30 Chronic kidney disease, stage 3 unspecified; K76.0 Fatty (change of) liver, not elsewhere classified; D50.9 Iron deficiency anemia, unspecified; E78.5 Hyperlipidemia, unspecified; I12.9 Hypertensive chronic kidney disease with stage 1 through stage 4 chronic kidney disease, or unspecified chronic kidney disease; N40.0 Benign prostatic hyperplasia without lower urinary tract symptoms; Z79.84 Long term (current) use of oral hypoglycemic drugs; Z79.01 Long term (current) use of anticoagulants; Z79.899 Other long term (current) drug therapy; Z86.711 Personal history of pulmonary embolism; Z86.718 Personal history of other venous thrombosis and embolism; Z95.828 Presence of other vascular implants and grafts

== ENCOUNTER 2023-12-03 22:50 | Emergency (ER) | payer BC ==
[~2023-12-03] VITALS: Ht 180.3 cm; Wt 123.0 kg
[~2023-12-03 22:50] MED LIST changes: +GLIP5TAB17 PO; +LOSA50TA28 PO; +METF-723 PO; +TIRZ7.5P SC; +XARE20TA PO
[2023-12-04 02:11] VITALS: BP 111/61; TEMP 99.8; O2SAT 99
== END 2023-12-04 02:08 | disposition home or self-care (01) ==
LOC: M ED 22:50
DX: I82.503 Chronic embolism and thrombosis of unspecified deep veins of lower extremity, bilateral (principal); Z87.19 Personal history of other diseases of the digestive system; Z79.899 Other long term (current) drug therapy

== ENCOUNTER → 2023-12-10 | Outpatient (REF) | payer BC ==
[2023-12-10 19:56] LABS: BASO # 0.1 10^3/uL (0.0-0.2); BASO % 0.8 % (0.0-1.0); EOS # 0.6 10^3/uL (0.0-0.5); HEMATOCRIT 28.1 % (42.0-52.0); HEMOGLOBIN 8.5 g/dl (13.5-17.5); LYMPH # 1.4 10^3/uL (1.5-5.0); LYMPH % 12.2 % (24.0-44.0); MEAN CORPUSCULAR HEMOGLOBIN 25.6 pg (27.0-33.0); MEAN CORPUSCULAR HGB CONC 30.2 g/dl (32.0-36.5); MEAN CORPUSCULAR VOLUME 84.6 fl (80.0-96.0); MONO % 8.9 % (2.0-8.0); NEUTROPHILS # 8.3 10^3/uL (1.5-8.5); NEUTROPHILS % 72.8 % (36.0-66.0); PLATELET COUNT, AUTOMATED 501 10^3/uL (150-450); RED BLOOD COUNT 3.32 10^6/uL (4.30-6.10); WHITE BLOOD COUNT 11.4 10^3/uL (4.0-10.0)
[2023-12-10 20:15] LABS: ALBUMIN 2.7 G/DL (3.2-5.2); BILIRUBIN,TOTAL 0.3 MG/DL (0.3-1.2); CALCIUM LEVEL 9.4 MG/DL (8.5-10.1); CREATININE FOR GFR 1.54 MG/DL (0.70-1.30); GLOMERULAR FILTRATION RATE 49.5 (>56); POTASSIUM SERUM 4.9 MMOL/L (3.5-5.1); TOTAL PROTEIN 7.2 G/DL (5.7-8.2)
== END ==
LOC: M LABWUC 17:07
PROVIDERS: ATTEND Physician Assistant
DX: D50.9 Iron deficiency anemia, unspecified (principal); K92.2 Gastrointestinal hemorrhage, unspecified; I82.509 Chronic embolism and thrombosis of unspecified deep veins of unspecified lower extremity

== ENCOUNTER 2023-12-18 11:21 | Emergency (ER) | payer BC ==
[2023-12-18] VITALS (7 sets, daily range): BP systolic 84–115; BP diastolic 46–58; TEMP 96.8–98.8; O2SAT 99–100
[~2023-12-18] VITALS: Ht 182.9 cm; Wt 118.0 kg
[2023-12-18 12:17] LABS: BASO # 0.1 10^3/uL (0.0-0.2); BASO % 0.7 % (0.0-1.0); EOS # 0.4 10^3/uL (0.0-0.5); EOS % 2.8 % (0.0-3.0); HEMATOCRIT 23.5 % (42.0-52.0); HEMOGLOBIN 7.3 g/dl (13.5-17.5); LYMPH # 0.9 10^3/uL (1.5-5.0); MEAN CORPUSCULAR HEMOGLOBIN 25.2 pg (27.0-33.0); MEAN CORPUSCULAR HGB CONC 31.1 g/dl (32.0-36.5); MONO # 0.7 10^3/uL (0.0-0.8); MONO % 5.2 % (2.0-8.0); NEUTROPHILS # 11.2 10^3/uL (1.5-8.5); NEUTROPHILS % 83.9 % (36.0-66.0); PLATELET COUNT, AUTOMATED 496 10^3/uL (150-450); WHITE BLOOD COUNT 13.4 10^3/uL (4.0-10.0)
[2023-12-18] MEDS: PANTOPRAZOLE 40MG VIAL IV ONE (12:31)
[2023-12-18] MEDS: NS 1,000 ML IV ONE ×2 (12:32→16:28)
[2023-12-18 12:34] LABS: INR 2.17; PARTIAL THROMBOPLASTIN TIME 36.3 SECONDS (24.8-34.2); PROTHROMBIN TIME 23.4 SECONDS (12.5-14.5)
[2023-12-18 12:48] LABS: CK-MB VALUE MASS < 1.0 NG/ML (<3.6)
[2023-12-18 12:50] LABS: ALBUMIN 2.6 G/DL (3.2-5.2); ALKALINE PHOSPHATASE 53 U/L (46-116); ALT/SGPT 15 U/L (7.0-40); AST/SGOT 17 U/L (<34); BILIRUBIN,DIRECT 0.1 MG/DL (<0.4); BILIRUBIN,TOTAL 0.3 MG/DL (0.3-1.2); BLOOD UREA NITROGEN 31 MG/DL (9-23); CALCIUM LEVEL 8.9 MG/DL (8.5-10.1); CARBON DIOXIDE LEVEL 21 MMOL/L (20-31); CHLORIDE LEVEL 107 MMOL/L (98-107); CREATININE FOR GFR 1.62 MG/DL (0.70-1.30); GLOMERULAR FILTRATION RATE 46.7 (>56); GLUCOSE, FASTING 163 MG/DL (60-100); POTASSIUM SERUM 5.5 MMOL/L (3.5-5.1); SODIUM LEVEL 137 MMOL/L (136-145); TOTAL PROTEIN 7.2 G/DL (5.7-8.2)
[2023-12-18 12:52] LABS: FREE T4 1.14 NG/DL (0.89-1.76); THYROID STIMULATING HORMONE 2.051 uIU/ML (0.55-4.78)
[2023-12-18 12:53] LABS: CPK CREATINE PHOSPHOKINASE 40 U/L (46-171)
[2023-12-18] MEDS: CALCIUM GLUCONATE 1,000 MG in D5W MINI-BAG PLUS 100 ML IV ONE (13:30)
[2023-12-18] MEDS: DEXTROSE 50% 50ML SYRINGE IV STA ×3 (13:31→16:02)
[2023-12-18] MEDS: HumuLIN R (REGULAR) INSULIN (NovoLIN R) **100U/ML** PER UNIT IV ONE (13:31)
[2023-12-18] MEDS ORDERED: HOME MED LIST COMPLETE! XX SCH (15:00)
== END 2023-12-18 19:17 | disposition short-term general hospital (02) ==
LOC: M ED 11:21
DX: K92.2 Gastrointestinal hemorrhage, unspecified (principal); R55 Syncope and collapse; D64.9 Anemia, unspecified; E11.9 Type 2 diabetes mellitus without complications; E78.5 Hyperlipidemia, unspecified; F10.10 Alcohol abuse, uncomplicated; Z79.84 Long term (current) use of oral hypoglycemic drugs; Z79.899 Other long term (current) drug therapy
CPT/HCPCS: 36430; 70450; 71046; 80048; 80076; 82550; 82553; 84439; 84443; 84484; 85025; 85610; 85730; 86850; 86900; 86901; 86920; 93005; 93041; 94760; 96361; 96365; 96366; 96374; 96375; 96376; 99285; C9113; J0612; J1815; P9016

== ENCOUNTER → 2023-12-29 | Outpatient (REF) | payer BC ==
[~2023-12-29] MED LIST changes: +SUCR1TAB56 PO
[2023-12-29 12:43] LABS: BASO # 0.1 10^3/uL (0.0-0.2); BASO % 0.7 % (0.0-1.0); EOS # 0.5 10^3/uL (0.0-0.5); EOS % 4.5 % (0.0-3.0); HEMATOCRIT 25.4 % (42.0-52.0); HEMOGLOBIN 7.7 g/dl (13.5-17.5); LYMPH # 0.9 10^3/uL (1.5-5.0); LYMPH % 8.1 % (24.0-44.0); MEAN CORPUSCULAR HEMOGLOBIN 25.4 pg (27.0-33.0); MEAN CORPUSCULAR HGB CONC 30.3 g/dl (32.0-36.5); MEAN CORPUSCULAR VOLUME 83.8 fl (80.0-96.0); MONO # 0.9 10^3/uL (0.0-0.8); MONO % 7.9 % (2.0-8.0); NEUTROPHILS # 9.1 10^3/uL (1.5-8.5); NEUTROPHILS % 78.4 % (36.0-66.0); PLATELET COUNT, AUTOMATED 391 10^3/uL (150-450); RED BLOOD COUNT 3.03 10^6/uL (4.30-6.10); WHITE BLOOD COUNT 11.7 10^3/uL (4.0-10.0)
[2023-12-29 13:06] LABS: ALBUMIN 2.3 G/DL (3.2-5.2); ALKALINE PHOSPHATASE 62 U/L (46-116); ALT/SGPT 15 U/L (7.0-40); AST/SGOT 13 U/L (<34); BILIRUBIN,TOTAL 0.4 MG/DL (0.3-1.2); BLOOD UREA NITROGEN 24 MG/DL (9-23); CALCIUM LEVEL 8.6 MG/DL (8.5-10.1); CARBON DIOXIDE LEVEL 22 MMOL/L (20-31); CHLORIDE LEVEL 105 MMOL/L (98-107); CREATININE FOR GFR 1.22 MG/DL (0.70-1.30); GLOMERULAR FILTRATION RATE > 60.0 (>56); GLUCOSE, FASTING 139 MG/DL (60-100); POTASSIUM SERUM 4.2 MMOL/L (3.5-5.1); SODIUM LEVEL 137 MMOL/L (136-145); TOTAL PROTEIN 6.7 G/DL (5.7-8.2)
== END ==
LOC: M LABWUC 11:24
PROVIDERS: ATTEND Physician Assistant
DX: D50.9 Iron deficiency anemia, unspecified (principal); K92.2 Gastrointestinal hemorrhage, unspecified; N18.30 Chronic kidney disease, stage 3 unspecified; I82.509 Chronic embolism and thrombosis of unspecified deep veins of unspecified lower extremity

== ENCOUNTER 2023-12-30 13:54 | Observation (INO) | payer BC ==
[2023-12-30] VITALS (11 sets, daily range): BP systolic 88–113; BP diastolic 50–63; TEMP 96.8–100.1; O2SAT 98–100
[~2023-12-30] VITALS: Ht 182.9 cm; Wt 117.2 kg
[~2023-12-30 13:54] MED LIST changes: -SUCR1TAB56 PO
[2023-12-30] MEDS: PANTOPRAZOLE 40MG VIAL IV ONE (14:50)
[2023-12-30 14:54] LABS: BASO # 0.1 10^3/uL (0.0-0.2); BASO % 0.7 % (0.0-1.0); EOS # 0.6 10^3/uL (0.0-0.5); HEMATOCRIT 21.3 % (42.0-52.0); LYMPH # 1.3 10^3/uL (1.5-5.0); LYMPH % 10.8 % (24.0-44.0); MEAN CORPUSCULAR HEMOGLOBIN 25.3 pg (27.0-33.0); MEAN CORPUSCULAR VOLUME 81.6 fl (80.0-96.0); MONO # 0.8 10^3/uL (0.0-0.8); MONO % 7.1 % (2.0-8.0); NEUTROPHILS # 9.1 10^3/uL (1.5-8.5); NEUTROPHILS % 76.1 % (36.0-66.0); PLATELET COUNT, AUTOMATED 437 10^3/uL (150-450); RED BLOOD COUNT 2.61 10^6/uL (4.30-6.10); WHITE BLOOD COUNT 11.9 10^3/uL (4.0-10.0)
[2023-12-30 14:57] LABS: HEMOGLOBIN 6.6 g/dl (13.5-17.5)
[2023-12-30 15:07] LABS: INR 1.24; PARTIAL THROMBOPLASTIN TIME 29.4 SECONDS (24.8-34.2); PROTHROMBIN TIME 15.3 SECONDS (12.5-14.5)
[2023-12-30 15:20] LABS: BLOOD UREA NITROGEN 25 MG/DL (9-23); CALCIUM LEVEL 8.7 MG/DL (8.5-10.1); CARBON DIOXIDE LEVEL 22 MMOL/L (20-31); CHLORIDE LEVEL 108 MMOL/L (98-107); CREATININE FOR GFR 1.22 MG/DL (0.70-1.30); GLOMERULAR FILTRATION RATE > 60.0 (>56); GLUCOSE, FASTING 172 MG/DL (60-100); POTASSIUM SERUM 4.4 MMOL/L (3.5-5.1); SODIUM LEVEL 137 MMOL/L (136-145)
[2023-12-30] MEDS: ACETAMINOPHEN 325 MG TAB PO ONE (16:10)
[2023-12-30] MEDS ORDERED: DEXTROSE 50% 50ML SYRINGE IV PRN (16:20)
[2023-12-30] MEDS ORDERED: GLUCOSE 4 GM CHEW PO PRN (16:20)
[2023-12-30] MEDS ORDERED: GLUCAGON INJ 1MG VIAL SC PRN (16:20)
[2023-12-30] MEDS ORDERED: ISOVUE-370 76% 100ML VIAL As Ordered ONE (16:21)
[2023-12-30] MEDS: GASTROGRAFIN SOLUTION 30ML PO SCH (16:54)
[2023-12-30] MEDS: INSULIN LISPRO (NovoLOG) PER UNIT SC SCH ×2 (17:30→21:00)
[2023-12-30 17:46] LABS: IRON (FE) 12 UG/DL (65-175); PERCENT SATURATION 5.3 % (19.7-50.0); TOTAL IRON BINDING CAPACITY 227 UG/DL (250-425)
[2023-12-30 17:49] LABS: FERRITIN 464.7 NG/ML (10.5-307.3)
[2023-12-30] MEDS ORDERED: SUCR1TAB56 PO (18:17)
[2023-12-30] MEDS ORDERED: HOME MED LIST COMPLETE! XX SCH (18:20)
[2023-12-30 18:32] LABS: HEMOGLOBIN A1c 5.9 % (4.0-6.0)
[2023-12-30] MEDS: NS 1,000 ML IV ONE (20:00)
[2023-12-30] MEDS: MIDODRINE 5 MG TAB PO ONE (21:15)
[2023-12-30] MEDS: SUCRALFATE 1 GM TAB PO SCH (21:15)
[2023-12-30] MEDS: PANTOPRAZOLE 40MG VIAL IV SCH (21:15)
[2023-12-30] MEDS: FERROUS SULFATE 325MG TAB PO SCH (21:15)
[2023-12-31 00:48] LABS: HEMATOCRIT 23.6 % (42.0-52.0); HEMOGLOBIN 7.5 g/dl (13.5-17.5); MEAN CORPUSCULAR HGB CONC 31.8 g/dl (32.0-36.5); MEAN CORPUSCULAR VOLUME 81.9 fl (80.0-96.0); RED BLOOD COUNT 2.88 10^6/uL (4.30-6.10); WHITE BLOOD COUNT 9.3 10^3/uL (4.0-10.0)
[2023-12-31 00:49] LABS: PLATELET COUNT, AUTOMATED 320 10^3/uL (150-450)
[2023-12-31 03:11] VITALS: BP 105/61; TEMP 98.1; O2SAT 99
[2023-12-31 03:24] VITALS: BP 107/62; TEMP 98.1; O2SAT 98
[2023-12-31 04:23] VITALS: BP 97/53; TEMP 98.1; O2SAT 93
[2023-12-31 05:41] VITALS: BP 105/60; TEMP 97.9; O2SAT 98
[2023-12-31 06:13] LABS: HEMATOCRIT 26.5 % (42.0-52.0); HEMOGLOBIN 8.4 g/dl (13.5-17.5)
[2023-12-31 06:14] LABS: BASO # 0.1 10^3/uL (0.0-0.2); BASO % 0.8 % (0.0-1.0); EOS # 0.6 10^3/uL (0.0-0.5); EOS % 6.8 % (0.0-3.0); HEMATOCRIT 26.8 % (42.0-52.0); HEMOGLOBIN 8.5 g/dl (13.5-17.5); LYMPH # 1.1 10^3/uL (1.5-5.0); MEAN CORPUSCULAR HGB CONC 31.7 g/dl (32.0-36.5); MONO # 0.8 10^3/uL (0.0-0.8); MONO % 8.8 % (2.0-8.0); NEUTROPHILS # 6.6 10^3/uL (1.5-8.5); NEUTROPHILS % 71.3 % (36.0-66.0); PLATELET COUNT, AUTOMATED 328 10^3/uL (150-450); RED BLOOD COUNT 3.27 10^6/uL (4.30-6.10); WHITE BLOOD COUNT 9.2 10^3/uL (4.0-10.0)
[2023-12-31 06:27] LABS: BLOOD UREA NITROGEN 25 MG/DL (9-23); CALCIUM LEVEL 8.6 MG/DL (8.5-10.1); CARBON DIOXIDE LEVEL 22 MMOL/L (20-31); CHLORIDE LEVEL 111 MMOL/L (98-107); CREATININE FOR GFR 1.28 MG/DL (0.70-1.30); GLOMERULAR FILTRATION RATE > 60.0 (>56); GLUCOSE, FASTING 129 MG/DL (60-100); POTASSIUM SERUM 4.4 MMOL/L (3.5-5.1); SODIUM LEVEL 140 MMOL/L (136-145)
[2023-12-31 07:45] VITALS: BP_SYST 104; BP_SYST 110; BP_SYST 114; BP_DIAS 59; BP_DIAS 60
[2023-12-31] MEDS: FENOFIBRATE 145MG TABLET (TRICOR) PO SCH (07:58)
[2023-12-31] MEDS: DAPAGLIFLOZIN PROPANEDIOL 10MG TABLET (FARXIGA) PO SCH (07:59)
[2023-12-31] MEDS ORDERED: TAMSULOSIN 0.4 MG CAP PO SCH (09:00)
== END 2023-12-31 11:15 | disposition home or self-care (01) ==
LOC: M ED 13:54 → M ED INP 13:55 → M MS5PR 17:50
PROVIDERS: ADMIT General Practice; ATTEND General Practice
DX: D68.32 Hemorrhagic disorder due to extrinsic circulating anticoagulants (principal); Z79.01 Long term (current) use of anticoagulants; D50.9 Iron deficiency anemia, unspecified; I86.4 Gastric varices; I86.8 Varicose veins of other specified sites; E66.01 Morbid (severe) obesity due to excess calories; N18.30 Chronic kidney disease, stage 3 unspecified; I12.9 Hypertensive chronic kidney disease with stage 1 through stage 4 chronic kidney disease, or unspecified chronic kidney disease; I50.30 Unspecified diastolic (congestive) heart failure; N40.0 Benign prostatic hyperplasia without lower urinary tract symptoms; Z86.718 Personal history of other venous thrombosis and embolism; Z86.711 Personal history of pulmonary embolism; E11.9 Type 2 diabetes mellitus without complications; E78.5 Hyperlipidemia, unspecified; Z79.899 Other long term (current) drug therapy; Z79.84 Long term (current) use of oral hypoglycemic drugs
CPT/HCPCS: 36415; 36430; 80048; 82728; 83036; 83550; 85014; 85018; 85025; 85027; 85610; 85730; 86850; 86900; 86901; 86920; 93005; 93041; 93970; 94760; 96374; 96376; 99285; C9113; P9016

== ENCOUNTER → 2024-01-11 | Outpatient (CLI) | payer BC ==
[~2024-01-11] MED LIST changes: +SUCR1TAB56 PO
[2024-01-11 11:44] LABS: BASO # 0.1 10^3/uL (0.0-0.2); BASO % 0.6 % (0.0-1.0); EOS # 0.5 10^3/uL (0.0-0.5); EOS % 3.6 % (0.0-3.0); HEMOGLOBIN 8.2 g/dl (13.5-17.5); LYMPH # 1.1 10^3/uL (1.5-5.0); LYMPH % 7.3 % (24.0-44.0); MEAN CORPUSCULAR HEMOGLOBIN 25.3 pg (27.0-33.0); MEAN CORPUSCULAR HGB CONC 30.4 g/dl (32.0-36.5); MEAN CORPUSCULAR VOLUME 83.3 fl (80.0-96.0); MONO # 1.1 10^3/uL (0.0-0.8); MONO % 7.6 % (2.0-8.0); NEUTROPHILS # 11.6 10^3/uL (1.5-8.5); NEUTROPHILS % 80.3 % (36.0-66.0); PLATELET COUNT, AUTOMATED 510 10^3/uL (150-450); RED BLOOD COUNT 3.24 10^6/uL (4.30-6.10); WHITE BLOOD COUNT 14.4 10^3/uL (4.0-10.0)
[2024-01-11 12:16] LABS: ALBUMIN 2.3 G/DL (3.2-5.2); ALKALINE PHOSPHATASE 71 U/L (46-116); ALT/SGPT < 9 U/L (7.0-40); AST/SGOT 10 U/L (<34); BILIRUBIN,TOTAL 0.4 MG/DL (0.3-1.2); BLOOD UREA NITROGEN 22 MG/DL (9-23); CALCIUM LEVEL 9.1 MG/DL (8.5-10.1); CARBON DIOXIDE LEVEL 22 MMOL/L (20-31); CHLORIDE LEVEL 104 MMOL/L (98-107); GLOMERULAR FILTRATION RATE > 60.0 (>56); GLUCOSE, FASTING 151 MG/DL (60-100); POTASSIUM SERUM 4.6 MMOL/L (3.5-5.1); SODIUM LEVEL 136 MMOL/L (136-145)
== END ==
LOC: M WUC 10:29
PROVIDERS: ATTEND Physician Assistant
DX: K92.2 Gastrointestinal hemorrhage, unspecified (principal); D50.9 Iron deficiency anemia, unspecified; I82.509 Chronic embolism and thrombosis of unspecified deep veins of unspecified lower extremity

== ENCOUNTER → 2024-01-13 | Outpatient (REF) | payer BC ==
[2024-01-13 19:28] LABS: BASO # 0.1 10^3/uL (0.0-0.2); BASO % 0.8 % (0.0-1.0); EOS # 0.6 10^3/uL (0.0-0.5); EOS % 3.8 % (0.0-3.0); HEMATOCRIT 27.6 % (42.0-52.0); HEMOGLOBIN 8.1 g/dl (13.5-17.5); LYMPH # 1.1 10^3/uL (1.5-5.0); LYMPH % 7.8 % (24.0-44.0); MEAN CORPUSCULAR HEMOGLOBIN 24.8 pg (27.0-33.0); MEAN CORPUSCULAR HGB CONC 29.3 g/dl (32.0-36.5); MEAN CORPUSCULAR VOLUME 84.4 fl (80.0-96.0); MONO # 1.1 10^3/uL (0.0-0.8); MONO % 7.9 % (2.0-8.0); NEUTROPHILS # 11.3 10^3/uL (1.5-8.5); NEUTROPHILS % 79.2 % (36.0-66.0); PLATELET COUNT, AUTOMATED 501 10^3/uL (150-450); RED BLOOD COUNT 3.27 10^6/uL (4.30-6.10); WHITE BLOOD COUNT 14.3 10^3/uL (4.0-10.0)
[2024-01-13 19:52] LABS: ALBUMIN 2.4 G/DL (3.2-5.2); BILIRUBIN,TOTAL 0.5 MG/DL (0.3-1.2); CREATININE FOR GFR 1.48 MG/DL (0.70-1.30); GLOMERULAR FILTRATION RATE 51.8 (>56); POTASSIUM SERUM 4.2 MMOL/L (3.5-5.1); TOTAL PROTEIN 7.1 G/DL (5.7-8.2)
== END ==
LOC: M LABWUC 16:30
PROVIDERS: ATTEND Physician Assistant
DX: K92.2 Gastrointestinal hemorrhage, unspecified (principal); D50.9 Iron deficiency anemia, unspecified; I82.509 Chronic embolism and thrombosis of unspecified deep veins of unspecified lower extremity

== ENCOUNTER 2024-01-20 10:45 | Emergency (ER) | payer BC ==
[~2024-01-20] VITALS: Ht 180.3 cm; Wt 108.6 kg
[2024-01-20] VITALS (10 sets, daily range): BP systolic 114–151; BP diastolic 64–79; TEMP 98.6–100.5; O2SAT 98–100
[2024-01-20] MEDS ORDERED: OMEP40CA5 PO (10:54)
[2024-01-20] MEDS ORDERED: BUPR150T12 PO (10:56)
[2024-01-20 11:42] LABS: BASO # 0.1 10^3/uL (0.0-0.2); BASO % 0.6 % (0.0-1.0); EOS # 0.6 10^3/uL (0.0-0.5); EOS % 4.5 % (0.0-3.0); HEMATOCRIT 23.4 % (42.0-52.0); HEMOGLOBIN 7.2 g/dl (13.5-17.5); LYMPH # 1.1 10^3/uL (1.5-5.0); MEAN CORPUSCULAR HEMOGLOBIN 24.7 pg (27.0-33.0); MEAN CORPUSCULAR HGB CONC 30.8 g/dl (32.0-36.5); MEAN CORPUSCULAR VOLUME 80.4 fl (80.0-96.0); MONO % 6.8 % (2.0-8.0); NEUTROPHILS # 11.4 10^3/uL (1.5-8.5); NEUTROPHILS % 79.3 % (36.0-66.0); PLATELET COUNT, AUTOMATED 534 10^3/uL (150-450); RED BLOOD COUNT 2.91 10^6/uL (4.30-6.10); WHITE BLOOD COUNT 14.3 10^3/uL (4.0-10.0)
[2024-01-20 12:08] LABS: CALCIUM LEVEL 9.3 MG/DL (8.5-10.1); CREATININE FOR GFR 1.42 MG/DL (0.70-1.30); GLOMERULAR FILTRATION RATE 54.3 (>56); POTASSIUM SERUM 4.8 MMOL/L (3.5-5.1)
[2024-01-20] MEDS ORDERED: HOME MED LIST COMPLETE! XX SCH (15:10)
[2024-01-20 18:09] LABS: HEMOGLOBIN 7.8 g/dl (13.5-17.5)
[2024-01-20] MEDS: ACETAMINOPHEN TAB 650MG DOSE (2X325MG) PO ONE (19:10)
== END 2024-01-20 21:41 | disposition home or self-care (01) ==
LOC: M ED 10:45
DX: D50.0 Iron deficiency anemia secondary to blood loss (chronic) (principal); K92.2 Gastrointestinal hemorrhage, unspecified; K86.9 Disease of pancreas, unspecified; E11.9 Type 2 diabetes mellitus without complications; I10 Essential (primary) hypertension; E78.5 Hyperlipidemia, unspecified; E66.9 Obesity, unspecified; F10.10 Alcohol abuse, uncomplicated; Z79.899 Other long term (current) drug therapy; Z79.4 Long term (current) use of insulin; Z79.810 Long term (current) use of selective estrogen receptor modulators (SERMs)
CPT/HCPCS: 36415; 36430; 71045; 80048; 85014; 85018; 85025; 86850; 86900; 86901; 86920; 87486; 87581; 87633; 87798; 93005; 93041; 94760; 99285; P9016

== ENCOUNTER → 2024-01-27 | Outpatient (CLI) | payer BC ==
[~2024-01-27] MED LIST changes: +BUPR150T12 PO; +OMEP40CA5 PO
[2024-01-27 19:29] LABS: BASO # 0.1 10^3/uL (0.0-0.2); BASO % 0.5 % (0.0-1.0); EOS # 0.5 10^3/uL (0.0-0.5); EOS % 3.3 % (0.0-3.0); HEMATOCRIT 27.2 % (42.0-52.0); HEMOGLOBIN 8.3 g/dl (13.5-17.5); LYMPH # 1.3 10^3/uL (1.5-5.0); LYMPH % 8.2 % (24.0-44.0); MEAN CORPUSCULAR HEMOGLOBIN 25.5 pg (27.0-33.0); MEAN CORPUSCULAR HGB CONC 30.5 g/dl (32.0-36.5); MEAN CORPUSCULAR VOLUME 83.4 fl (80.0-96.0); MONO # 1.1 10^3/uL (0.0-0.8); MONO % 6.9 % (2.0-8.0); NEUTROPHILS # 12.5 10^3/uL (1.5-8.5); NEUTROPHILS % 80.5 % (36.0-66.0); PLATELET COUNT, AUTOMATED 524 10^3/uL (150-450); RED BLOOD COUNT 3.26 10^6/uL (4.30-6.10); WHITE BLOOD COUNT 15.5 10^3/uL (4.0-10.0)
[2024-01-27 20:04] LABS: ALBUMIN 2.2 G/DL (3.2-5.2); BILIRUBIN,TOTAL 0.4 MG/DL (0.3-1.2); CALCIUM LEVEL 9.2 MG/DL (8.5-10.1); CREATININE FOR GFR 1.47 MG/DL (0.70-1.30); GLOMERULAR FILTRATION RATE 52.2 (>56); POTASSIUM SERUM 4.4 MMOL/L (3.5-5.1); TOTAL PROTEIN 7.4 G/DL (5.7-8.2)
== END ==
LOC: M WUC 15:01
PROVIDERS: ATTEND Physician Assistant
DX: K92.2 Gastrointestinal hemorrhage, unspecified (principal); D50.9 Iron deficiency anemia, unspecified; I82.509 Chronic embolism and thrombosis of unspecified deep veins of unspecified lower extremity

== ENCOUNTER → 2024-03-31 | Outpatient (CLI) | payer BC ==
[2024-03-31 16:24] LABS: INR 2.19; PROTHROMBIN TIME 23.6 SECONDS (12.5-14.5)
== END ==
LOC: M WUC 10:57
PROVIDERS: ATTEND Internal Medicine Hematology & Oncology
DX: C25.2 Malignant neoplasm of tail of pancreas (principal)

== ENCOUNTER → 2024-04-18 | Outpatient (CLI) | payer BC ==
[2024-04-18 12:29] LABS: INR 2.15; PROTHROMBIN TIME 23.2 SECONDS (12.5-14.5)
== END ==
LOC: M WUC 09:11
PROVIDERS: ATTEND Internal Medicine Hematology & Oncology
DX: C25.2 Malignant neoplasm of tail of pancreas (principal)

== ENCOUNTER → 2024-05-08 | Outpatient (CLI) | payer BC ==
[2024-05-08 12:01] LABS: INR 1.81; PROTHROMBIN TIME 21.2 SECONDS (12.5-14.5)
== END ==
LOC: M WUC 09:41
PROVIDERS: ATTEND Internal Medicine Hematology & Oncology
DX: C25.2 Malignant neoplasm of tail of pancreas (principal)

== ENCOUNTER → 2024-05-22 | Outpatient (CLI) | payer BC ==
[2024-05-22 09:57] LABS: HEMATOCRIT 31.2 % (42.0-52.0); MEAN CORPUSCULAR HEMOGLOBIN 29.8 pg (27.0-33.0); MEAN CORPUSCULAR HGB CONC 32.1 g/dl (32.0-36.5); MEAN CORPUSCULAR VOLUME 92.9 fl (80.0-96.0); PLATELET COUNT, AUTOMATED 323 10^3/uL (150-450); RED BLOOD COUNT 3.36 10^6/uL (4.30-6.10); WHITE BLOOD COUNT 7.6 10^3/uL (4.0-10.0)
[2024-05-22 10:03] LABS: INR 2.56; PROTHROMBIN TIME 27.5 SECONDS (12.5-14.5)
[2024-05-22 10:27] LABS: EOSINOPHILS 7 % (0-3); LYMPHOCYTES 17 % (16-44); MONOCYTES 10 % (0-5); NEUTROPHILS 60 % (28-66); PLATELET ESTIMATE NORMAL (NORMAL)
[2024-05-22 10:28] LABS: ANISOCYTOSIS 2+; DOHLE BODIES 1+; HELMET CELLS 1+; TEAR DROP CELLS 1+
[2024-05-22 10:30] LABS: CALCIUM LEVEL 9.9 MG/DL (8.5-10.1); CREATININE FOR GFR 1.69 MG/DL (0.70-1.30); GLOMERULAR FILTRATION RATE 44.4 (>56); POTASSIUM SERUM 4.9 MMOL/L (3.5-5.1)
== END ==
LOC: M WUC 08:55
PROVIDERS: ATTEND Nurse Practitioner
DX: C25.2 Malignant neoplasm of tail of pancreas (principal); Z79.01 Long term (current) use of anticoagulants; Z86.718 Personal history of other venous thrombosis and embolism

== ENCOUNTER → 2024-06-07 | Outpatient (CLI) | payer BC ==
[2024-06-07 11:21] LABS: BASO # 0.1 10^3/uL (0.0-0.2); BASO % 0.5 % (0.0-1.0); EOS # 0.1 10^3/uL (0.0-0.5); HEMATOCRIT 28.6 % (42.0-52.0); HEMOGLOBIN 9.4 g/dl (13.5-17.5); LYMPH # 1.2 10^3/uL (1.5-5.0); LYMPH % 12.3 % (24.0-44.0); MEAN CORPUSCULAR HEMOGLOBIN 30.9 pg (27.0-33.0); MEAN CORPUSCULAR HGB CONC 32.9 g/dl (32.0-36.5); MEAN CORPUSCULAR VOLUME 94.1 fl (80.0-96.0); MONO # 1.6 10^3/uL (0.0-0.8); NEUTROPHILS % 69.6 % (36.0-66.0); PLATELET COUNT, AUTOMATED 273 10^3/uL (150-450); RED BLOOD COUNT 3.04 10^6/uL (4.30-6.10); WHITE BLOOD COUNT 10.1 10^3/uL (4.0-10.0)
[2024-06-07 11:34] LABS: INR 1.8; PROTHROMBIN TIME 21.1 SECONDS (12.5-14.5)
[2024-06-07 11:42] LABS: ALBUMIN 3.5 G/DL (3.2-5.2); BILIRUBIN,TOTAL 0.2 MG/DL (0.3-1.2); CALCIUM LEVEL 9.6 MG/DL (8.3-10.6); CREATININE FOR GFR 1.34 MG/DL (0.70-1.30); GLOMERULAR FILTRATION RATE 57.9 (>49); POTASSIUM SERUM 4.1 MMOL/L (3.5-5.1); TOTAL PROTEIN 7.3 G/DL (5.7-8.2)
== END ==
LOC: M WUC 09:09
PROVIDERS: ATTEND Nurse Practitioner
DX: Z51.11 Encounter for antineoplastic chemotherapy (principal); C25.2 Malignant neoplasm of tail of pancreas; Z79.01 Long term (current) use of anticoagulants; Z86.718 Personal history of other venous thrombosis and embolism; E86.0 Dehydration

== ENCOUNTER → 2024-06-22 | Outpatient (CLI) | payer BC ==
[2024-06-22 16:40] LABS: BASO # 0.1 10^3/uL (0.0-0.2); EOS # 0.2 10^3/uL (0.0-0.5); EOS % 1.4 % (0.0-3.0); HEMATOCRIT 25.4 % (42.0-52.0); HEMOGLOBIN 8.3 g/dl (13.5-17.5); LYMPH # 2.4 10^3/uL (1.5-5.0); LYMPH % 18.6 % (24.0-44.0); MEAN CORPUSCULAR HEMOGLOBIN 30.9 pg (27.0-33.0); MEAN CORPUSCULAR HGB CONC 32.7 g/dl (32.0-36.5); MEAN CORPUSCULAR VOLUME 94.4 fl (80.0-96.0); MONO % 22.1 % (2.0-8.0); NEUTROPHILS # 6.8 10^3/uL (1.5-8.5); NEUTROPHILS % 53.4 % (36.0-66.0); PLATELET COUNT, AUTOMATED 182 10^3/uL (150-450); RED BLOOD COUNT 2.69 10^6/uL (4.30-6.10); WHITE BLOOD COUNT 12.7 10^3/uL (4.0-10.0)
[2024-06-22 16:53] LABS: MONO # 2.8 10^3/uL (0.0-0.8)
== END ==
LOC: M WUC 14:46
PROVIDERS: ATTEND Internal Medicine Hematology & Oncology
DX: C25.2 Malignant neoplasm of tail of pancreas (principal)

== ENCOUNTER → 2024-06-26 | Outpatient (REF) | payer BC ==
[2024-06-26 10:23] LABS: BASO # 0.2 10^3/uL (0.0-0.2); BASO % 0.8 % (0.0-1.0); EOS # 0.5 10^3/uL (0.0-0.5); EOS % 1.7 % (0.0-3.0); HEMATOCRIT 28.5 % (42.0-52.0); HEMOGLOBIN 9.4 g/dl (13.5-17.5); LYMPH # 3.1 10^3/uL (1.5-5.0); MEAN CORPUSCULAR HEMOGLOBIN 31.9 pg (27.0-33.0); MEAN CORPUSCULAR VOLUME 96.6 fl (80.0-96.0); NEUTROPHILS # 15.6 10^3/uL (1.5-8.5); NEUTROPHILS % 59.9 % (36.0-66.0); PLATELET COUNT, AUTOMATED 295 10^3/uL (150-450); RED BLOOD COUNT 2.95 10^6/uL (4.30-6.10); WHITE BLOOD COUNT 26.1 10^3/uL (4.0-10.0)
[2024-06-26 10:26] LABS: MONO # 2.9 10^3/uL (0.0-0.8)
== END ==
LOC: M LABWUC 09:58
PROVIDERS: ATTEND Internal Medicine Hematology & Oncology
DX: C25.2 Malignant neoplasm of tail of pancreas (principal)

== ENCOUNTER → 2024-07-10 | Outpatient (CLI) | payer BC ==
[2024-07-10 16:26] LABS: BASO # 0.2 10^3/uL (0.0-0.2); BASO % 0.4 % (0.0-1.0); EOS # 0.2 10^3/uL (0.0-0.5); EOS % 0.4 % (0.0-3.0); HEMATOCRIT 28.7 % (42.0-52.0); HEMOGLOBIN 9.4 g/dl (13.5-17.5); LYMPH # 1.4 10^3/uL (1.5-5.0); LYMPH % 2.4 % (24.0-44.0); MEAN CORPUSCULAR HEMOGLOBIN 33.7 pg (27.0-33.0); MEAN CORPUSCULAR HGB CONC 32.8 g/dl (32.0-36.5); MEAN CORPUSCULAR VOLUME 102.9 fl (80.0-96.0); MONO % 1.6 % (2.0-8.0); NEUTROPHILS # 52.9 10^3/uL (1.5-8.5); NEUTROPHILS % 88.5 % (36.0-66.0); PLATELET COUNT, AUTOMATED 425 10^3/uL (150-450); RED BLOOD COUNT 2.79 10^6/uL (4.30-6.10)
[2024-07-10 16:35] LABS: ALBUMIN 3.6 G/DL (3.2-5.2); BILIRUBIN,TOTAL 0.4 MG/DL (0.3-1.2); CREATININE FOR GFR 1.3 MG/DL (0.70-1.30); GLOMERULAR FILTRATION RATE 59.9 (>49); POTASSIUM SERUM 4.5 MMOL/L (3.5-5.1); TOTAL PROTEIN 7.6 G/DL (5.7-8.2)
[2024-07-10 16:44] LABS: INR 1.4; PROTHROMBIN TIME 17.4 SECONDS (12.5-14.5)
[2024-07-10 17:17] LABS: WHITE BLOOD COUNT 59.8 10^3/uL (4.0-10.0)
== END ==
LOC: M WUC 10:49
PROVIDERS: ATTEND Nurse Practitioner
DX: C25.2 Malignant neoplasm of tail of pancreas (principal); Z79.01 Long term (current) use of anticoagulants; Z86.718 Personal history of other venous thrombosis and embolism; E86.0 Dehydration

== ENCOUNTER → 2024-08-10 | Outpatient (CLI) | payer BC ==
[2024-08-10 12:57] LABS: INR 2.7; PROTHROMBIN TIME 28.6 SECONDS (12.5-14.5)
== END ==
LOC: M WUC 09:21
PROVIDERS: ATTEND Internal Medicine Hematology & Oncology
DX: C25.2 Malignant neoplasm of tail of pancreas (principal)

== ENCOUNTER 2024-08-17 19:17 | Emergency (ER) | payer BC ==
[~2024-08-17] VITALS: Ht 182.9 cm; Wt 88.4 kg
[2024-08-17] MEDS ORDERED: WARF-23 PO (19:57)
[2024-08-17] MEDS ORDERED: FLOM0.4C39 PO (19:59)
[2024-08-17] MEDS ORDERED: PANT40TA29 PO (20:00)
[2024-08-17] MEDS ORDERED: INSU100V6 SQ (20:02)
[2024-08-17] MEDS ORDERED: ASPI81CH33 PO (20:04)
[2024-08-17 20:10] LABS: VENOUS BASE EXCESS -1.1 (-2.0-2.0); VENOUS HCO3 22.2 MMOL/L (23.0-27.0); VENOUS O2 SATURATION 99.1 % (60.0-80.0); VENOUS PARTIAL PRESSURE CO2 30.9 mmHg (38.0-50.0); VENOUS PARTIAL PRESSURE O2 144.1 mmHg (30.0-50.0); VENOUS PH 7.475 UNITS (7.330-7.430); VENOUS STANDARD HCO3 23.6 MMOL/L; VENOUS TOTAL CO2 23.2 MMOL/L (24.0-28.0)
[2024-08-17 20:16] LABS: MEAN CORPUSCULAR HEMOGLOBIN 34.2 pg (27.0-33.0); MEAN CORPUSCULAR HGB CONC 33.3 g/dl (32.0-36.5); MEAN CORPUSCULAR VOLUME 102.5 fl (80.0-96.0); PLATELET COUNT, AUTOMATED 768 10^3/uL (150-450); RED BLOOD COUNT 2.02 10^6/uL (4.30-6.10)
[2024-08-17 20:27] LABS: HEMATOCRIT 20.7 % (42.0-52.0); HEMOGLOBIN 6.9 g/dl (13.5-17.5); WHITE BLOOD COUNT 54.2 10^3/uL (4.0-10.0)
[2024-08-17 20:39] LABS: INR 2.97; PARTIAL THROMBOPLASTIN TIME 56.9 SECONDS (24.8-34.2); PROTHROMBIN TIME 30.8 SECONDS (12.5-14.5)
[2024-08-17 20:40] LABS: C REACTIVE PROTEIN QUANTITATIV 6.91 MG/DL (<1.0)
[2024-08-17 20:47] LABS: PROCALCITONIN 0.82 ng/ml
[2024-08-17 20:50] LABS: LYMPHOCYTES 3 % (16-44); MONOCYTES 2 % (0-5); NEUTROPHILS 94 % (28-66)
[2024-08-17 20:51] LABS: ANISOCYTOSIS 2+
[2024-08-17 20:54] LABS: PLATELET ESTIMATE INCREASED (NORMAL)
[2024-08-17 20:54] LABS: ALBUMIN 2.9 G/DL (3.2-5.2); BILIRUBIN,DIRECT 0.1 MG/DL (<0.4); BILIRUBIN,TOTAL 0.4 MG/DL (0.3-1.2); CALCIUM LEVEL 8.9 MG/DL (8.3-10.6); CREATININE FOR GFR 1.35 MG/DL (0.70-1.30); GLOMERULAR FILTRATION RATE 57.4 (>49); POTASSIUM SERUM 4.4 MMOL/L (3.5-5.1); TOTAL PROTEIN 7.8 G/DL (5.7-8.2)
[2024-08-17] MEDS: ACETAMINOPHEN 325 MG TAB PO ONE (21:12)
[2024-08-17 21:27] LABS: KETONE, URINE AUTO RFX NEGATIVE (NEGATIVE); MUCUS, URINE RFX SMALL (NEGATIVE); NITRITE, URINE AUTO RFX NEGATIVE (NEGATIVE); RBC, URINE AUTO RFX 67 /HPF (0-3); SQUAM EPITHELIAL CELL UR AURFX 0 /HPF (0-6); WBC, URINE AUTO RFX 7 /HPF (0-3)
[2024-08-17 21:38] LABS: LEUKOCYTE ESTERASE UR AUTO RFX TRACE (NEGATIVE)
[2024-08-17] MEDS ORDERED: ISOVUE-370 76% 100ML VIAL As Ordered ONE (21:41)
[2024-08-17] MEDS: CEFEPIME HCL 2 GM in DEXTROSE 5% (D5W) ADV/MINI-BAG 50 ML IV ONE (21:46)
[2024-08-17 22:53] VITALS: BP 105/59; TEMP 98.4; O2SAT 98
[2024-08-17 23:05] VITALS: BP 108/63; TEMP 98.9; O2SAT 100
[2024-08-18 00:53] VITALS: BP 111/60; TEMP 98; O2SAT 98
[2024-08-18 01:15] VITALS: BP 117/69; TEMP 98; O2SAT 100
== END 2024-08-18 01:32 | disposition short-term general hospital (02) ==
LOC: M ED 19:17
DX: K65.1 Peritoneal abscess (principal); R50.9 Fever, unspecified; D64.9 Anemia, unspecified; E11.9 Type 2 diabetes mellitus without complications; F32.A Depression, unspecified; N40.0 Benign prostatic hyperplasia without lower urinary tract symptoms; K21.9 Gastro-esophageal reflux disease without esophagitis; Z79.1 Long term (current) use of non-steroidal anti-inflammatories (NSAID); Z79.4 Long term (current) use of insulin; Z79.84 Long term (current) use of oral hypoglycemic drugs; Z79.01 Long term (current) use of anticoagulants; Z79.899 Other long term (current) drug therapy
CPT/HCPCS: 71045; 74177; 80048; 80076; 81001; 82150; 82803; 83605; 84145; 85025; 85610; 85730; 86140; 86850; 86900; 86901; 86920; 87040; 87086; 87486; 87581; 87633; 87798; 93005; 93041; 94760; 96374; 99285; J0692; P9016; Q9967

== ENCOUNTER → 2024-09-06 | Outpatient (REF) | payer BC ==
[~2024-09-06] MED LIST changes: +ASPI81CH33 PO; +FLOM0.4C39 PO; +INSU100V6 SQ; +PANT40TA29 PO; +WARF-23 PO
[2024-09-06 18:30] LABS: BASO # 0.7 10^3/uL (0.0-0.2); BASO % 0.7 % (0.0-1.0); EOS # 0.8 10^3/uL (0.0-0.5); EOS % 0.8 % (0.0-3.0); HEMATOCRIT 27.3 % (42.0-52.0); HEMOGLOBIN 8.4 g/dl (13.5-17.5); LYMPH # 1.6 10^3/uL (1.5-5.0); LYMPH % 1.7 % (24.0-44.0); MEAN CORPUSCULAR HEMOGLOBIN 33.7 pg (27.0-33.0); MEAN CORPUSCULAR HGB CONC 30.8 g/dl (32.0-36.5); MEAN CORPUSCULAR VOLUME 109.6 fl (80.0-96.0); MONO % 2.7 % (2.0-8.0); NEUTROPHILS # 89.8 10^3/uL (1.5-8.5); NEUTROPHILS % 90.9 % (36.0-66.0); PLATELET COUNT, AUTOMATED 485 10^3/uL (150-450); RED BLOOD COUNT 2.49 10^6/uL (4.30-6.10)
[2024-09-06 18:36] LABS: ALBUMIN 2.8 G/DL (3.2-5.2); ALKALINE PHOSPHATASE 326 U/L (40-129); ALT/SGPT 38 U/L (7.0-40); AST/SGOT 102 U/L (<34); BILIRUBIN,TOTAL 0.7 MG/DL (0.3-1.2); BLOOD UREA NITROGEN 17 MG/DL (9-23); CALCIUM LEVEL 10.8 MG/DL (8.3-10.6); CARBON DIOXIDE LEVEL 21 MMOL/L (20-31); CHLORIDE LEVEL 110 MMOL/L (98-107); CREATININE FOR GFR 1.15 MG/DL (0.70-1.30); GLOMERULAR FILTRATION RATE > 60.0 (>49); GLUCOSE, FASTING 55 MG/DL (74-106); POTASSIUM SERUM 4.6 MMOL/L (3.5-5.1); SODIUM LEVEL 144 MMOL/L (136-145); TOTAL PROTEIN 7.5 G/DL (5.7-8.2)
[2024-09-06 19:14] LABS: MONO # 2.7 10^3/uL (0.0-0.8); WHITE BLOOD COUNT 98.6 10^3/uL (4.0-10.0)
== END ==
LOC: M LABWUC 17:28
PROVIDERS: ATTEND Physician Assistant
DX: C25.2 Malignant neoplasm of tail of pancreas (principal)